=== PATIENT | male | born 1960 | race Caucasian/White ===

== ENCOUNTER → 2019-07-15 08:02 | Outpatient (REF) | payer BC, SELFPAY | LOC: ANHLAB 08:02 | PROVIDERS: PCP Internal Medicine; Visit Provider Nurse Practitioner Family | DX: C44.1222 Squamous cell carcinoma of skin of right lower eyelid, including canthus (principal) | CPT/HCPCS: 88305; 88331 ==

== ENCOUNTER 2021-02-17 07:57 | Outpatient (RCR) | payer BC, SELFPAY ==
[2021-02-17 09:10] VITALS: BP 156/90; PULSE 82; RESP 20; TEMP 36.1; O2SAT 100
[2021-02-17] MEDS: diphenhydrAMINE HCl CAP 25 MG CAPSULE PO (09:19)
[2021-02-17] MEDS: FAMOTIDINE 20 MG TABLET PO (09:20)
[2021-02-17] MEDS: ACETAMINOPHEN 325 MG TABLET 650 MG PO (09:20)
[2021-02-17 10:48] VITALS: BP 160/90
--- NOTE | 2021-02-20 08:55 | PC.NURSE ---
Called Mr Espinal and had to leave a message.
== END 2021-02-17 17:00 ==
LOC: AMCINF 07:57
PROVIDERS: PCP Internal Medicine; Visit Provider Internal Medicine Hematology & Oncology
DX: U07.1 COVID-19 (principal); I10 Essential (primary) hypertension
CPT/HCPCS: A9270; M0245; Q0245

== ENCOUNTER 2021-12-25 07:00 | Outpatient (NON) | payer BC, SELFPAY | END 2021-12-25 07:01 | disposition home or self-care (01) | PROVIDERS: PCP Internal Medicine; Visit Provider Surgery Plastic and Reconstructive Surgery | DX: C44.319 Basal cell carcinoma of skin of other parts of face (principal) | CPT/HCPCS: 88305; 88331 ==

== ENCOUNTER 2022-01-11 07:00 | Outpatient (NON) | payer BC, SELFPAY | END 2022-01-11 07:01 | disposition home or self-care (01) | LOC: ANHLAB 01-12 15:22 | PROVIDERS: PCP Internal Medicine; Visit Provider Nurse Practitioner | DX: C44.712 Basal cell carcinoma of skin of right lower limb, including hip (principal) | CPT/HCPCS: 88305 ==

== ENCOUNTER 2022-03-19 14:17 | Outpatient (NON) | payer BC, SELFPAY | END 2022-03-19 14:18 | disposition home or self-care (01) | LOC: ANHLAB 14:17 | PROVIDERS: PCP Internal Medicine; Visit Provider Nurse Practitioner | DX: C44.219 Basal cell carcinoma of skin of left ear and external auricular canal (principal); C44.719 Basal cell carcinoma of skin of left lower limb, including hip; C44.712 Basal cell carcinoma of skin of right lower limb, including hip | CPT/HCPCS: 88305; 88331 ==